=== PATIENT | male | born 1985 | race Caucasian/White ===

== ENCOUNTER 2023-07-18 13:03 | Emergency (ER) | payer BC ==
[~2023-07-18] VITALS: Ht 180.3 cm; Wt 90.7 kg
[2023-07-18 13:11] VITALS: BP 148/90; TEMP 99
[2023-07-18] MEDS ORDERED: KETOROLAC TROMETHAMINE 15 MG/ML VIAL ONE ×2 (14:16→14:22)
[2023-07-18] MEDS: KETOROLAC TROMETHAMINE 15 MG/ML VIAL IM ONE (14:25)
[2023-07-18] MEDS ORDERED: IBUP-1955 PO (14:53)
[2023-07-18 15:16] VITALS: O2SAT 99
== END 2023-07-18 15:16 | disposition home or self-care (01) ==
LOC: ER 14:30
DX: S16.1XXA Strain of muscle, fascia and tendon at neck level, initial encounter (principal); R51.9 Headache, unspecified; V49.9XXA Car occupant (driver) (passenger) injured in unspecified traffic accident, initial encounter; Y93.89 Activity, other specified; Y92.89 Other specified places as the place of occurrence of the external cause; Y99.8 Other external cause status
CPT/HCPCS: 99285; 72125; 96372; 70450; J1885